=== PATIENT | male | born 1990 | race Two or more races ===

== ENCOUNTER 2016-11-26 14:10 | Emergency (ER) | payer MEDICAID ==
[~2016-11-26] VITALS: Ht 157.5 cm; Wt 54.8 kg
[2016-11-26 14:18] VITALS: Ht 157.5 cm; Wt 54.8 kg
[2016-11-26] MEDS ORDERED: LORAZEPAM 2 MG INJ IV STA (14:53)
[2016-11-26] MEDS ORDERED: SOD CHLORIDE 0.9% 1,000 ML IV STA (14:53)
[2016-11-26 15:45] LABS: ADD SCAN DIFF NO
[2016-11-26 15:47] LABS: HEMATOCRIT 46.1 % (42.0-52.0); HEMOGLOBIN 15.9 g/dl (14.0-18.0); MEAN CORPUSCULAR HEMOGLOBIN 30.2 pg (29.0-33.0); MEAN CORPUSCULAR HGB CONC 34.5 g/dl (32.0-37.0); MEAN CORPUSCULAR VOLUME 87.6 fl (82.0-101.0); MEAN PLATELET VOLUME 10.1 fl (7.4-10.4); PLATELET COUNT 311 10^3/UL (140-415); RED BLOOD COUNT 5.26 10^6/ul (4.70-6.10); RED CELL DISTRIBUTION WIDTH 12.1 % (11.5-14.5); WHITE BLOOD COUNT 5.7 10^3/ul (4.8-10.8)
[2016-11-26 16:11] LABS: ALBUMIN 3.5 g/dl (3.3-4.9); POTASSIUM 3.7 mmol/L (3.5-5.1)
[2016-11-26 16:13] LABS: CREATININE 0.8 mg/dl (0.61-1.24)
[2016-11-26 16:14] LABS: ALBUMIN/GLOBULIN RATIO 0.97; BILIRUBIN,INDIRECT 0.4 mg/dl (0-1.1); BILIRUBIN,TOTAL 0.4 mg/dl (0.2-1.3); TOTAL PROTEIN 7.1 g/dl (6.1-8.1)
[2016-11-26 16:15] LABS: CALCIUM 7.8 mg/dl (8.4-10.2)
[2016-11-26 16:29] LABS: LYMPHOCYTES # 1.9 10^3/ul (0.8-2.9); MONOCYTE # 0.6 10^3/ul (0.3-0.9); NEUTROPHIL # 2.5 10^3/ul (1.6-7.5)
[2016-11-26] MEDS ORDERED: ACETAMINOPHEN 500 MG TAB PO STA (18:48)
--- NOTE | 2016-11-26 19:53 | RADRPT ---
PROCEDURE: XR Chest. CLINICAL INDICATION: Abdominal pain. TECHNIQUE: Single frontal view of the chest. COMPARISON: None. FINDINGS: The cardiomediastinal silhouette is within normal limits. The lungs are clear. No signs of pleural f luid or pneumothorax are seen. The osseous structures and soft tissues are unremarkable. IMPRESSION: No evidence for active cardiopulmonary disease. RPTAT: [facility] Physician Yanet Date Time Electronically viewed and signed by Physician Yanet on 11/26/2016 19:53 RS/
[2016-11-26] MEDS ORDERED: SOD CHLORIDE 0.9% 100 ML ONE (20:13)
[2016-11-26] MEDS ORDERED: IOHEXOL 300MG/ML 150 ML BTL ONE (20:13)
--- NOTE | 2016-11-26 20:45 | RADRPT ---
PROCEDURE: CT Abdomen and Pelvis with contrast. CLINICAL INDICATION: Abdominal pain. TECHNIQUE: CT scan of the abdomen and pelvis with contrast was performed on a multi-detector high- resolution CT scanner. The patient was scanned following the uncomplicated intravenous administrati on of 100 cc of Omnipaque 300. Coronal and sagittal reformatted images were obtained from the axial source images. Images were reviewed on a high-resolution PACS workstation. The total exam CTDI equa ls 4.83 mGy and the total exam DLP equals 275.31 mGy-cm. One or more of the following dose reduction techniques were used: Automated exposure control. Adjustment of the mA and/or kV according to patient size. Use of iterative reconstruction technique. COMPARISON: None. FINDINGS: CT abdomen: The lung bases are clear. The heart size is normal, without pericardial thickening or effusion. Th e liver is normal in size and density without focal mass or intrahepatic biliary dilatation. The sp peter is normal in size and homogeneous in density. The stomach is partially collapsed, but is gross ly unremarkable. The pancreas as visualized is normal. The gallbladder and biliary tree are unrema rkable and there is no evidence for biliary dilatation. The adrenal glands are symmetric and normal . The kidneys are symmetrically unremarkable as well. No renal calculus or obstructive uropathy or mass lesion is seen. The aorta is of normal caliber. There is no retroperitoneal lymphadenopathy. The virginie hepatis reg ion is clear. The bowel and mesentery, as visualized, are equally unremarkable. CT pelvis: The small bowel loops situated within the pelvis are unremarkable. There is normal appendix. The pel thom organs are normal. The pelvic sidewalls and inguinal regions are clear. The sigmoid colon and rectum are unremarkable. No mass, lymphadenopathy, or free fluid is seen. No acute inflammation is seen. The bladder is normal. The surrounding osseous structures are unremarkable. No osteolytic o r osteoblastic lesion is detected. IMPRESSION: 1. No mass, lymphadenopathy, or focal acute inflammatory process is identified. 2. Normal appendix. RPTAT: HHO .Karina Palmer MD, Date Time Electronically viewed and signed by .Karina Palmer MD, on 11/26/2016 20:45 .O/
--- NOTE | 2016-11-26 20:46 | ERA ---
ER Documentation Chief Complaint Date/Time DATE: 11/26/16 TIME: 20:41 Chief Complaint Vomiting diarrhea. HPI This is a 26-year-old male who says that he uses meth regularly and his last meth use was 7 days ago. He says he is here because he feels generalized weakness with nausea vomiting and diarrhea that is nonbilious and nonbloody. He denies any cough shortness of breath no headache no neck pain no fever currently says he has no abdominal pain. Patient denies any alcohol use the patient is a very poor historian will give limited answers ROS All systems reviewed and are negative except as per history of present illness. Medications Home Meds No Active Prescriptions or Reported Meds Allergies Allergies: Coded Allergies: No Known Allergy (Unverified , 11/26/16) PMhx/Soc Medical and Surgical Hx: pt denies Medical Hx, pt denies Surgical Hx History of Surgery: No Anesthesia Reaction: No Hx Neurological Disorder: No Hx Respiratory Disorders: No Hx Cardiac Disorders: No Hx Psychiatric Problems: No Hx Miscellaneous Medical Probl: Yes (DRUG AND ALCOHOL ABUSE) Hx Alcohol Use: Yes (DAILY) Hx Substance Use: Yes (METH X6 YEARS) Hx Tobacco Use: Yes Smoking Status: Current every day smoker FmHx Family History: No coronary disease Physical Exam Vitals Vital Signs Date Time Temp Pulse Resp B/P Pulse Ox O2 Delivery O2 Flow Rate FiO2 11/26/16 20:44 91 16 119/75 98 Room Air 11/26/16 19:14 97 16 129/82 98 Room Air 11/26/16 18:41 103.1 104 16 118/73 99 Room Air 11/26/16 14:18 98.0 92 18 113/73 98 Physical Exam Const: Well-developed, well-nourished Head: Atraumatic, normocephalic Eyes: Normal Conjunctiva, PERRLA, EOMI, normal sclera, no nystagmus ENT: Normal External Ears, Nose and Mouth, moist mucus membranes. Neck: Full range of motion. No meningismus, no lymphadenopathy. Resp: Clear to auscultation bilaterally, no wheezing, rhonchi, rales Cardio: Regular rate and rhythm, no murmurs, S1 S2 present Abd: Soft, non tender x 4, non distended. Normal bowel sounds, no guarding or rebound, no pulsitile abdominal masses or bruits Skin: No petechiae or rashes, no ecchymosis , no maculopapular rash Back: No midline or flank tenderness Ext: No cyanosis, or edema, FROM x 4, normal inspection, neurovascularly intact x 4 Neur: Awake and alert, STR 5/5 x 4, sensation intact x 4, no focal findings, cerebellum intact Psych: Normal Mood and Affect Result Diagram: 11/26/16 1445 11/26/16 1445 Results 24 hrs Laboratory Tests Test 11/26/16 14:45 White Blood Count 5.710^3/ul Red Blood Count 5.2610^6/ul Hemoglobin 15.9g/dl Hematocrit 46.1% Mean Corpuscular Volume 87.6fl Mean Corpuscular Hemoglobin 30.2pg Mean Corpuscular Hemoglobin Concent 34.5g/dl Red Cell Distribution Width 12.1% Platelet Count 11060^3/UL Mean Platelet Volume 10.1fl Neutrophils % 44.0% Band Neutrophils % 7.0% Lymphocytes % 33.0% Reactive Lymphocytes % 5.0% Monocytes % 11.0% Neutrophils # 2.510^3/ul Lymphocytes # 1.910^3/ul Monocytes # 0.610^3/ul Sodium Level 134mmol/L Potassium Level 3.7mmol/L Chloride Level 94mmol/L Carbon Dioxide Level 26mmol/L Anion Gap 18 Blood Urea Nitrogen 13mg/dl Creatinine 0.80mg/dl Glucose Level 122mg/dl Calcium Level 7.8mg/dl Total Bilirubin 0.4mg/dl Direct Bilirubin 0.00mg/dl Indirect Bilirubin 0.4mg/dl Aspartate Amino Transf (AST/SGOT) 120IU/L Alanine Aminotransferase (ALT/SGPT) 109IU/L Alkaline Phosphatase 213IU/L Total Protein 7.1g/dl Albumin 3.5g/dl Globulin 3.60g/dl Albumin/Globulin Ratio 0.97 Current Medications Medications (Trade) Dose Ordered Sig/Tammy Route PRN Reason Start Time Stop Time Status Last Admin Dose Admin Sodium Chloride (NS) 1,000 ml @ 1,000 mls/hr Q1H STAT IV 11/26/16 14:53 11/26/16 15:52 DC 11/26/16 15:06 Lorazepam (Ativan) 2 mg ONCE STAT IV 11/26/16 14:53 11/26/16 14:57 DC 11/26/16 15:06 Acetaminophen (Tylenol Tab) 1,000 mg ONCE STAT PO 11/26/16 18:48 11/26/16 18:49 DC 11/26/16 19:00 IV Flush 10 ml 10 ml STK-MED ONCE .ROUTE 11/26/16 20:13 11/26/16 20:14 DC 11/26/16 20:25 Sodium Chloride (NS) 100 ml @ ud STK-MED ONCE .ROUTE 11/26/16 20:13 11/26/16 20:14 DC 11/26/16 20:25 Iohexol (Omnipaque 300mg/ ml) 150 ml STK-MED ONCE .ROUTE 11/26/16 20:13 11/26/16 20:14 DC 11/26/16 20:25 Procedures/MDM PROCEDURE: XR Chest. CLINICAL INDICATION: Abdominal pain. TECHNIQUE: Single frontal view of the chest. COMPARISON: None. FINDINGS: The cardiomediastinal silhouette is within normal limits. The lungs are clear. No signs of pleural fluid or pneumothorax are seen. The osseous structures and soft tissues are unremarkable. IMPRESSION: No evidence for active cardiopulmonary disease. RPTAT: [facility] Physician Yanet Date Time Electronically viewed and signed by Physician Yanet on 11/26/2016 19:53 RS/ CC: KATIE OWENS DO Patient's labs were unremarkable as was his chest x-ray. The patient then spiked a fever of 103.1. Because of patient having vomiting diarrhea and is a poor historian I decided to get a CT abdomen. PROCEDURE: CT Abdomen and Pelvis with contrast. CLINICAL INDICATION: Abdominal pain. TECHNIQUE: CT scan of the abdomen and pelvis with contrast was performed on a multi-detector high-resolution CT scanner. The patient was scanned following the uncomplicated intravenous administration of 100 cc of Omnipaque 300. Coronal and sagittal reformatted images were obtained from the axial source images. Images were reviewed on a high-resolution PACS workstation. The total exam CTDI equals 4.83 mGy and the total exam DLP equals 275.31 mGy-cm. One or more of the following dose reduction techniques were used: Automated exposure control. Adjustment of the mA and/or kV according to patient size. Use of iterative reconstruction technique. COMPARISON: None. FINDINGS: CT abdomen: The lung bases are clear. The heart size is normal, without pericardial thickening or effusion. The liver is normal in size and density without focal mass or intrahepatic biliary dilatation. The spleen is normal in size and homogeneous in density. The stomach is partially collapsed, but is grossly unremarkable. The pancreas as visualized is normal. The gallbladder and biliary tree are unremarkable and there is no evidence for biliary dilatation. The adrenal glands are symmetric and normal. The kidneys are symmetrically unremarkable as well. No renal calculus or obstructive uropathy or mass lesion is seen. The aorta is of normal caliber. There is no retroperitoneal lymphadenopathy. The virginie hepatis region is clear. The bowel and mesentery, as visualized, are equally unremarkable. CT pelvis: The small bowel loops situated within the pelvis are unremarkable. There is normal appendix. The pelvic organs are normal. The pelvic sidewalls and inguinal regions are clear. The sigmoid colon and rectum are unremarkable. No mass, lymphadenopathy, or free fluid is seen. No acute inflammation is seen. The bladder is normal. The surrounding osseous structures are unremarkable. No osteolytic or osteoblastic lesion is detected. IMPRESSION: 1. No mass, lymphadenopathy, or focal acute inflammatory process is identified. 2. Normal appendix. RPTAT: HHO .Karina Palmer MD, Date Time Electronically viewed and signed by .Karina Palmer MD, MD on 11/26/2016 20:45 .O/ CC: KATIE OWENS DO Reevaluation the patient is very sleepy. The patient says that he has not been sleeping well as of late. Patient is saying he has some mild neck pain and headache but there is no nuchal rigidity. We will get CT scan of brain, likely LP Transfer care to Dr. Rehman. He and I saw the patient together at shift change Departure Diagnosis: Primary Impression: Vomiting and diarrhea Condition: Stable KATIE OWENS DO Nov 26, 2016 20:46
[2016-11-26 21:09] VITALS: TEMP 99.6
[2016-11-26] MEDS ORDERED: SODIUM CHLORIDE 0.9% 1L BAG IV* STA (21:57)
[2016-11-26 22:00] VITALS: RESP 16
[2016-11-26 22:10] LABS: URINE BILIRUBIN (Dip) NEGATIVE (NEGATIVE); URINE BLOOD (Dip) NEGATIVE (NEGATIVE); URINE COLOR YELLOW (YELLOW); URINE GLUCOSE (Dip) NEGATIVE (NEGATIVE); URINE KETONES (Dip) 40 (NEGATIVE); URINE LEUKOCYTE ESTERASE (Dip) NEGATIVE (NEGATIVE); URINE NITRITE (Dip) NEGATIVE (NEGATIVE); URINE UROBILINOGEN (Dip) 1.0 E.U./dL (0.1-1.0)
[2016-11-26 22:11] LABS: ADD UMIC NO; URINE TOTAL PROTEIN (Dip) NEGATIVE (NEGATIVE)
[2016-11-26 23:00] VITALS: BP 118/84; PULSE 93
--- NOTE | 2016-11-26 23:00 | RADRPT ---
PROCEDURE: CT Brain without contrast. CLINICAL INDICATION: Headache TECHNIQUE: A multiplanar CT of the brain was performed on a CT scanner utilizing axial imaging fro m the skull base through the vertex without IV contrast. The CTDIvol is 44.81 mGy and the DLP is 72 0.23 mGycm. One or more of the following dose reduction techniques were utilized: Automated exposu re control, adjustment of the mA and/or kV according to patient size, use of iterative reconstructio n technique. COMPARISON: None FINDINGS: No evidence of intracranial hemorrhage or abnormal extra-axial fluid collection. The brain parenchyma is normal attenuation morphology with preservation of flaherty white differentiatio n and age appropriate size of the ventricles and subarachnoid spaces. The basal cisterns, posterior fossa contents, brainstem, craniocervical junction, orbits, pituitary axis, paranasal sinuses, mastoid air cells, and calvarium are unremarkable. IMPRESSION: 1. No intracranial hemorrhage or acute intracranial abnormality. If clinical symptoms persist, MRI may be considered for further evaluation. RPTAT:AAJJ Physician Damion Date Time Electronically viewed and signed by Physician Damion on 11/26/2016 22:59 SIGRID/
--- NOTE | 2016-11-26 23:17 | QN ---
Documentation Comment I have evaluated this patient. He is alert oriented to person place and time, no focal neurological deficits. He is afebrile. CT the head is normal, he has no nuchal rigidity, negative Kernig sign, negative Babinski sign. He will be discharged home at this time JAM ABREU DO Nov 26, 2016 23:17
[2016-11-27] MEDS ORDERED: ONDA4TAB14 PO (06:52)
== END 2016-11-26 23:28 | disposition home or self-care (01) ==
LOC: E/R 14:10
DX: R11.10 Vomiting, unspecified (principal); R19.7 Diarrhea, unspecified; F17.210 Nicotine dependence, cigarettes, uncomplicated; R40.2142 Coma scale, eyes open, spontaneous, at arrival to emergency department; R40.2252 Coma scale, best verbal response, oriented, at arrival to emergency department; R40.2362 Coma scale, best motor response, obeys commands, at arrival to emergency department; R51 Headache
CPT/HCPCS: 36415; 70450; 71010; 74177; 80053; 81003; 83605; 85025; 96374; J2060; J7030; Q9967; Z7502; Z7610

== ENCOUNTER 2016-11-27 06:19 | Emergency (ER) | payer MEDICAID ==
[~2016-11-27] VITALS: Ht 170.2 cm; Wt 57.0 kg
[2016-11-27 06:25] VITALS: Ht 170.2 cm; Wt 57.0 kg
[2016-11-27] MEDS ORDERED: ONDANSETRON 4 MG INJ IV STA (06:26)
[2016-11-27] MEDS ORDERED: FAMOTIDINE 20 MG INJ IV STA (06:26)
[2016-11-27] MEDS ORDERED: SOD CHLORIDE 0.9% 1,000 ML IV STA ×2 (06:26→07:39)
--- NOTE | 2016-11-27 06:50 | ERD ---
ER Documentation Chief Complaint Date/Time DATE: 11/27/16 TIME: 06:46 Chief Complaint N/V/D x 3 days HPI This is a 26-year-old male that returns to the emergency department after he been discharged roughly 12 hours prior to arrival complaining of persistent nonbloody nonbilious emesis. The patient indicates that for the past 3 days he has been experiencing multiple episodes of nonbloody nonbilious emesis and loose watery stools. The patient on this visit indicates that he is not experiencing any abdominal pain or cramping. Yesterday during his visit at [facility] the patient had a chest x-ray, CT scan of his brain and CT scan of his abdomen and pelvis which were reviewed by myself and found to be normal. The patient has a history of crystal meth use and indicates his last use was 8 days prior to arrival and denies any ethanol intake. The patient stated he returned to the emergency department today as he was instructed to return if his vomiting did not improve. He did not take any antiemetics at home. He has had no fevers no shaking or chills. He denies any recent travel. ROS All systems reviewed and are negative except as per history of present illness. Medications Home Meds Active Scripts Ondansetron (Ondansetron Odt) 4 Mg Tab.rapdis, 4 MG PO Q6H Y for NAUSEA AND/OR VOMITING, #20 TAB Prov:YARITZA VALENTIN 11/27/16 Allergies Allergies: Coded Allergies: No Known Allergy (Unverified , 11/26/16) PMhx/Soc History of Surgery: No Anesthesia Reaction: No Hx Neurological Disorder: No Hx Respiratory Disorders: No Hx Cardiac Disorders: No Hx Psychiatric Problems: No Hx Miscellaneous Medical Probl: Yes (DRUG AND ALCOHOL ABUSE) Hx Alcohol Use: Yes (DAILY) Hx Substance Use: Yes (METH X6 YEARS) Hx Tobacco Use: Yes Physical Exam Vitals Vital Signs Date Time Temp Pulse Resp B/P Pulse Ox O2 Delivery O2 Flow Rate FiO2 11/27/16 07:00 98.3 94 20 113/85 100 Room Air 11/27/16 06:25 98.6 78 18 146/89 99 Physical Exam Constitutional:Well-developed. Well-nourished. HEENT:Normocephalic. Atraumatic.Pupils were equal round reactive to light. Dry mucous membranes.No tonsillar exudates. Neck: No nuchal rigidity. No lymphadenopathy. No posterior cervical spine tenderness or step-offs. Respiratory: Not using accessory muscles of respiration.Lungs were clear to auscultation bilaterally. No rhonchi. No rales. No wheezing. Cardiovascular: Regular rate regular rhythm.No murmurs. No rubs were appreciated.S1, S2 normal. Distal pulses are palpable 2+ bilaterally. GI: Abdomen was soft. Nontender. Non Distended. No pulsatile abdominal masses or bruits. No rebound. No guarding. Bowel sounds were present and normal. Muscle skeletal: Full range of motion of both the upper and lower extremities bilaterally.Normal muscle tone.No assymetrical calf tenderness or swelling. Skin: No petechia, no purpura. No lesions on the palms or the soles of the feet. No maculopapular rash. NEURO: Patient was alert, awake, orientated x3.No facial droop. Gait observed and normal with no ataxia.Speech had regular rate and rhythm. No focal neurological deficits. Result Diagram: 11/27/16 0650 11/27/16 0650 Results 24 hrs Laboratory Tests Test 11/27/16 06:50 11/27/16 08:35 White Blood Count 6.710^3/ul Red Blood Count 5.1310^6/ul Hemoglobin 15.3g/dl Hematocrit 45.8% Mean Corpuscular Volume 89.3fl Mean Corpuscular Hemoglobin 29.8pg Mean Corpuscular Hemoglobin Concent 33.4g/dl Red Cell Distribution Width 12.5% Platelet Count 35156^3/UL Mean Platelet Volume 9.2fl Neutrophils % 50.0% Band Neutrophils % 7.0% Lymphocytes % 28.0% Reactive Lymphocytes % 9.0% Monocytes % 6.0% Neutrophils # 3.410^3/ul Lymphocytes # 1.910^3/ul Monocytes # 0.410^3/ul Prothrombin Time 13.9Sec Prothrombin Time Ratio 1.1 INR International Normalized Ratio 1.07 Activated Partial Thromboplast Time 28.1Sec Sodium Level 139mmol/L Potassium Level 3.9mmol/L Chloride Level 102mmol/L Carbon Dioxide Level 25mmol/L Anion Gap 16 Blood Urea Nitrogen 10mg/dl Creatinine 0.67mg/dl Glucose Level 127mg/dl Lactic Acid Level 1.4mmol/L Calcium Level 7.4mg/dl Total Bilirubin 0.3mg/dl Direct Bilirubin 0.00mg/dl Indirect Bilirubin 0.3mg/dl Aspartate Amino Transf (AST/SGOT) 87IU/L Alanine Aminotransferase (ALT/SGPT) 93IU/L Alkaline Phosphatase 183IU/L Total Protein 6.3g/dl Albumin 3.1g/dl Globulin 3.20g/dl Albumin/Globulin Ratio 0.96 Amylase Level 46U/L Lipase 49U/L Ethyl Alcohol Level < 10.0mg/dl Urine Color LT. YELLOW Urine Clarity CLEAR Urine pH 6.0 Urine Specific [place] <=1.005 Urine Ketones TRACE Urine Nitrite NEGATIVE Urine Bilirubin NEGATIVE Urine Urobilinogen 0.2 E.U./dL Urine Leukocyte Esterase NEGATIVE Urine Hemoglobin NEGATIVE Urine Glucose NEGATIVE% Urine Total Protein NEGATIVE Urine Opiates Screen Negative Urine Barbiturates Negative Urine Amphetamines Screen Negative Urine Benzodiazepines Screen Negative Urine Cocaine Screen Negative Urine Cannabinoids Negative Current Medications Medications (Trade) Dose Ordered Sig/Tammy Route PRN Reason Start Time Stop Time Status Last Admin Dose Admin Sodium Chloride (NS) 1,000 ml @ 1,000 mls/hr Q1H STAT IV 11/27/16 06:26 11/27/16 07:25 DC 11/27/16 06:59 Ondansetron HCl (Zofran Inj) 4 mg ONCE STAT IV 11/27/16 06:26 11/27/16 06:28 DC 11/27/16 06:59 Famotidine 20 mg 20 mg ONCE STAT IV 11/27/16 06:26 11/27/16 06:28 DC 11/27/16 06:59 Sodium Chloride (NS) 1,000 ml @ 1,000 mls/hr Q1H STAT IV 11/27/16 07:39 11/27/16 08:38 DC 11/27/16 07:54 Procedures/MDM This is a 26-year-old male who presented to the emergency department with vomiting and diarrhea. The patient appeared to have clinical dehydration and IV access was established by nursing staff. The patient received intravenous antiemetics which included Zofran and Reglan and IV fluids. The patient also received IV Pepcid. I repeated ancillary laboratory work and there were no electrolyte abnormalities. The patient's lactic acid was normal. Urine drug screen was normal and serum ethanol level was undetected. The patient now was able to tolerate oral intake in the emergency department with no subsequent emesis. I do not feel is necessary to repeat diagnostic imaging as the patient had no peritoneal signs on abdominal examination and no physical exam findings to suggest esophageal rupture. Observation Note: Time: 4 hours Family Hx: No Hypertension Evaluation: Multiple exams showed improving symptoms and no evidence of emesis while in the emergency department The patient was discharged home in fair condition. They were instructed to return to the emergency department at any time if there was any worsening of their condition. The patient stated they would follow up with their PCP in the next 24-48 hours to initiate a suitable medication regimen under the care of their PCP as well as to allow their PCP to monitor any drug reactions. The patient was discharged home with prescriptions after they gave informed consent to the new medication. They were also fully informed by myself on the adverse effects and adverse drug interactions in order to provide adequate safeguards to prevent possible adverse reactions to medications. Departure Diagnosis: Primary Impression: Nausea and vomiting Vomiting type: unspecified Vomiting Intractability: unspecified Qualified Code: R11.2 - Nausea and vomiting, intractability of vomiting not specified, unspecified vomiting type Condition: Fair YARITZA VALENTIN Nov 27, 2016 06:50
[2016-11-27] MEDS ORDERED: ONDA4TAB14 PO (06:52)
[2016-11-27 07:05] LABS: ADD SCAN DIFF NO
[2016-11-27 07:15] LABS: HEMATOCRIT 45.8 % (42.0-52.0); HEMOGLOBIN 15.3 g/dl (14.0-18.0); MEAN CORPUSCULAR HEMOGLOBIN 29.8 pg (29.0-33.0); MEAN CORPUSCULAR HGB CONC 33.4 g/dl (32.0-37.0); MEAN CORPUSCULAR VOLUME 89.3 fl (82.0-101.0); MEAN PLATELET VOLUME 9.2 fl (7.4-10.4); PLATELET COUNT 322 10^3/UL (140-415); RED BLOOD COUNT 5.13 10^6/ul (4.70-6.10); RED CELL DISTRIBUTION WIDTH 12.5 % (11.5-14.5); WHITE BLOOD COUNT 6.7 10^3/ul (4.8-10.8)
[2016-11-27 07:23] LABS: ALBUMIN 3.1 g/dl (3.3-4.9); CHLORIDE 102 mmol/L (97-110); INR 1.07; POTASSIUM 3.9 mmol/L (3.5-5.1); PROTIME 13.9 Sec (12.2-14.2); PT RATIO 1.1; SODIUM 139 mmol/L (135-144)
[2016-11-27 07:24] LABS: PARTIAL THROMBOPLASTIN TIME 28.1 Sec (25.0-35.0)
[2016-11-27 07:25] LABS: AMYLASE 46 U/L (11-123); CREATININE 0.67 mg/dl (0.61-1.24)
[2016-11-27 07:26] LABS: ALANINE AMINOTRANSFERASE 93 IU/L (13-69); ALBUMIN/GLOBULIN RATIO 0.96; ALKALINE PHOSPHATASE 183 IU/L (42-121); ANION GAP 16 (8-16); ASPARTATE AMINO TRANSFERASE 87 IU/L (15-46); BILIRUBIN,INDIRECT 0.3 mg/dl (0-1.1); BILIRUBIN,TOTAL 0.3 mg/dl (0.2-1.3); BLOOD UREA NITROGEN 10 mg/dl (7-20); CALCIUM 7.4 mg/dl (8.4-10.2); CARBON DIOXIDE 25 mmol/L (21-31); GLUCOSE 127 mg/dl (70-220); TOTAL PROTEIN 6.3 g/dl (6.1-8.1)
[2016-11-27 07:28] LABS: ETHANOL < 10.0 mg/dl
[2016-11-27 08:58] LABS: LYMPHOCYTES # 1.9 10^3/ul (0.8-2.9); MONOCYTE # 0.4 10^3/ul (0.3-0.9); NEUTROPHIL # 3.4 10^3/ul (1.6-7.5)
[2016-11-27 09:24] LABS: ADD UMIC NO; URINE BILIRUBIN (Dip) NEGATIVE (NEGATIVE); URINE BLOOD (Dip) NEGATIVE (NEGATIVE); URINE COLOR LT. YELLOW (YELLOW); URINE GLUCOSE (Dip) NEGATIVE (NEGATIVE); URINE KETONES (Dip) TRACE (NEGATIVE); URINE LEUKOCYTE ESTERASE (Dip) NEGATIVE (NEGATIVE); URINE NITRITE (Dip) NEGATIVE (NEGATIVE); URINE TOTAL PROTEIN (Dip) NEGATIVE (NEGATIVE); URINE UROBILINOGEN (Dip) 0.2 E.U./dL (0.1-1.0)
[2016-11-27 09:59] LABS: BARBITURATES Negative (NEGATIVE); BENZODIAZEPINES Negative (NEGATIVE); CANNABINOIDS Negative (NEGATIVE); COCAINE Negative (NEGATIVE); OPIATES Negative (NEGATIVE)
[2016-11-27 11:00] VITALS: BP 111/62; PULSE 86; RESP 20; TEMP 98.3
== END 2016-11-27 11:33 | disposition home or self-care (01) ==
LOC: E/R 06:19
DX: R11.2 Nausea with vomiting, unspecified (principal); R40.2252 Coma scale, best verbal response, oriented, at arrival to emergency department; R10.9 Unspecified abdominal pain; R40.2142 Coma scale, eyes open, spontaneous, at arrival to emergency department; R40.2362 Coma scale, best motor response, obeys commands, at arrival to emergency department; Z87.891 Personal history of nicotine dependence
CPT/HCPCS: 80053; 80306; 80307; 81003; 82150; 83605; 83690; 85025; 85610; 85730; J2405; J7030; Z7610; 96374; 96375

== ENCOUNTER 2017-02-03 23:15 | Emergency (ER) | payer SELFPAY ==
[~2017-02-03] VITALS: Ht 170.2 cm; Wt 59.0 kg
[~2017-02-03 23:15] MED LIST: ONDA4TAB14 PO
[2017-02-03 23:18] VITALS: Ht 170.2 cm; Wt 59.0 kg
[2017-02-03] MEDS ORDERED: SOD CHLORIDE 0.9% 1,000 ML IV STA (23:44)
[2017-02-03] MEDS ORDERED: FAMOTIDINE 20 MG TAB PO STA (23:44)
[2017-02-03] MEDS ORDERED: ONDANSETRON 4 MG INJ IV STA (23:44)
[2017-02-04 00:52] LABS: ADD SCAN DIFF NO
[2017-02-04 01:00] LABS: BASOPHILS % 0.1 % (0.0-2.0); EOSINOPHILS # 0.1 10^3/ul (0.0-0.5); EOSINOPHILS % 0.4 % (0.0-7.0); HEMATOCRIT 46.2 % (42.0-52.0); HEMOGLOBIN 15.6 g/dl (14.0-18.0); LYMPHOCYTES # 1.7 10^3/ul (0.8-2.9); LYMPHOCYTES % 13.1 % (15.0-51.0); MEAN CORPUSCULAR HEMOGLOBIN 29.3 pg (29.0-33.0); MEAN CORPUSCULAR HGB CONC 33.8 g/dl (32.0-37.0); MEAN CORPUSCULAR VOLUME 86.8 fl (82.0-101.0); MEAN PLATELET VOLUME 9.4 fl (7.4-10.4); MONOCYTE # 0.6 10^3/ul (0.3-0.9); MONOCYTES % 4.8 % (0.0-11.0); NEUTROPHIL # 10.7 10^3/ul (1.6-7.5); NEUTROPHILS % 81.3 % (39.0-77.0); PLATELET COUNT 273 10^3/UL (140-415); RED BLOOD COUNT 5.32 10^6/ul (4.70-6.10); RED CELL DISTRIBUTION WIDTH 12.9 % (11.5-14.5); WHITE BLOOD COUNT 13.1 10^3/ul (4.8-10.8)
[2017-02-04 01:08] LABS: ADD UMIC NO; UR ASCORBIC ACID NEGATIVE (NEGATIVE); UR BILIRUBIN (Dip) NEGATIVE (NEGATIVE); UR BLOOD (Dip) NEGATIVE (NEGATIVE); UR CLARITY CLEAR (CLEAR); UR COLOR YELLOW (YELLOW); UR GLUCOSE (Dip) NEGATIVE (NEGATIVE); UR KETONES (Dip) 1+ mg/dL (NEGATIVE); UR LEUKOCYTE ESTERASE (Dip) NEGATIVE Leu/ul (NEGATIVE); UR NITRITE (Dip) NEGATIVE (NEGATIVE); UR SPECIFIC GRAVITY (Dip) 1.017 (1.003-1.030); UR TOTAL PROTEIN (Dip) NEGATIVE (NEGATIVE); UR UROBILINOGEN (Dip) NEGATIVE (NEGATIVE)
[2017-02-04 01:28] LABS: ALBUMIN 4.4 g/dl (3.3-4.9); ALBUMIN/GLOBULIN RATIO 1.33; BILIRUBIN,INDIRECT 0.4 mg/dl (0-1.1); BILIRUBIN,TOTAL 0.4 mg/dl (0.2-1.3); CALCIUM 8.9 mg/dl (8.4-10.2); CREATININE 0.58 mg/dl (0.61-1.24); POTASSIUM 3.5 mmol/L (3.5-5.1); TOTAL PROTEIN 7.7 g/dl (6.1-8.1)
[2017-02-04 02:00] LABS: BARBITURATES NEGATIVE (NEGATIVE); BENZODIAZEPINES NEGATIVE (NEGATIVE); CANNABINOIDS NEGATIVE (NEGATIVE); COCAINE NEGATIVE (NEGATIVE); OPIATES NEGATIVE (NEGATIVE)
[2017-02-04] MEDS ORDERED: ONDA4TAB14 PO (02:05)
[2017-02-04] MEDS ORDERED: FAMO-18 PO (02:05)
--- NOTE | 2017-02-04 02:10 | ERD ---
ER Documentation Chief Complaint Date/Time DATE: 02/04/17 TIME: 02:07 Chief Complaint abd pain w/ vomiting x 2 days HPI 26-year-old male patient with no significant past medical history presents the ED complaining of abdominal pain that started 2 days ago. Reports that he had a bowel movement earlier this morning. States that he had 2 episodes of nonbilious nonbloody vomiting. Reports that he has methamphetamine use. States that he smokes 5-6 cigarettes per day. Denies any diarrhea, constipation , chest pain, shortness of breath, wheezing, fever, chills, weakness, numbness or tingling. Denies any dysuria, urgency, frequency, scrotal pain. ROS All systems reviewed and are negative except as per history of present illness. Medications Home Meds Active Scripts Ondansetron (Ondansetron Odt) 4 Mg Tab.rapdis, 4 MG PO Q6H Y for NAUSEA AND/OR VOMITING, #10 TAB Prov:JOSAFAT LUEVANO PA-C 02/04/17 Famotidine* (Pepcid*) 20 Mg Tablet, 20 MG PO BID, #20 TAB Prov:JOSAFAT LUEVANO PA-C 02/04/17 Ondansetron (Ondansetron Odt) 4 Mg Tab.rapdis, 4 MG PO Q6H Y for NAUSEA AND/OR VOMITING, #20 TAB Prov:YARITZA VALENTIN 11/27/16 Allergies Allergies: Coded Allergies: No Known Allergy (Unverified , 11/26/16) PMhx/Soc Medical and Surgical Hx: pt denies Medical Hx, pt denies Surgical Hx History of Surgery: No Anesthesia Reaction: No Hx Neurological Disorder: No Hx Respiratory Disorders: No Hx Cardiac Disorders: No Hx Psychiatric Problems: No Hx Miscellaneous Medical Probl: No Hx Alcohol Use: Yes Hx Substance Use: No Hx Tobacco Use: Yes Smoking Status: Current every day smoker Physical Exam Vitals Vital Signs Date Time Temp Pulse Resp B/P Pulse Ox O2 Delivery O2 Flow Rate FiO2 02/03/17 23:18 98.3 91 20 136/99 99 Physical Exam Const: [id number], well-nourished. In no acute distress. Head: Atraumatic, normocephalic Eyes: Normal Conjunctiva without injection. No purulent discharge. ENT: Normal external ear, nose. Moist oropharynx without tonsillar exudates. Non -erythematous pharynx. Uvula midline. No drooling. No trismus. Neck: No cervical midline tenderness. Full range of motion. No meningismus. No cervical lymphadenopathy. No JVD. Resp: Clear to auscultation bilaterally. No wheezing, rhonchi, rales, or crackles. No accessory muscle use. No retractions. Cardio: Regular rate and rhythm. No murmurs, rubs or gallops. Abd: Soft, generalized tenderness, non distended. Normal bowel sounds. No palpable masses. No rebound tenderness. No guarding. Negative McBurney's point. Negative psoas sign. Negative obturator sign. Skin: No petechiae or rashes Back: No midline tenderness. No CVA tenderness. Ext: No cyanosis, or edema. Neur: Awake and alert. Normal gait. Normal coordination. Psych: Normal Mood and Affect Result Diagram: 02/04/17 0023 02/04/17 0023 Results 24 hrs Laboratory Tests Test 02/04/17 00:23 White Blood Count 13.110^3/ul Red Blood Count 5.3210^6/ul Hemoglobin 15.6g/dl Hematocrit 46.2% Mean Corpuscular Volume 86.8fl Mean Corpuscular Hemoglobin 29.3pg Mean Corpuscular Hemoglobin Concent 33.8g/dl Red Cell Distribution Width 12.9% Platelet Count 70410^3/UL Mean Platelet Volume 9.4fl Neutrophils % 81.3% Lymphocytes % 13.1% Monocytes % 4.8% Eosinophils % 0.4% Basophils % 0.1% Nucleated Red Blood Cells % 0.0/100WBC Neutrophils # 10.710^3/ul Lymphocytes # 1.710^3/ul Monocytes # 0.610^3/ul Eosinophils # 0.110^3/ul Basophils # 0.010^3/ul Nucleated Red Blood Cells # 0.010^3/ul Urine Color YELLOW Urine Clarity CLEAR Urine pH 6.0 Urine Specific Tamms 1.017 Urine Ketones 1+mg/dL Urine Nitrite NEGATIVEmg/dL Urine Bilirubin NEGATIVEmg/dL Urine Urobilinogen NEGATIVEmg/dL Urine Leukocyte Esterase NEGATIVELeu/ul Urine Hemoglobin NEGATIVEmg/dL Urine Glucose NEGATIVEmg/dL Urine Total Protein NEGATIVEmg/dl Sodium Level 141mmol/L Potassium Level 3.5mmol/L Chloride Level 105mmol/L Carbon Dioxide Level 24mmol/L Anion Gap 16 Blood Urea Nitrogen 8mg/dl Creatinine 0.58mg/dl Glucose Level 103mg/dl Calcium Level 8.9mg/dl Total Bilirubin 0.4mg/dl Direct Bilirubin 0.00mg/dl Indirect Bilirubin 0.4mg/dl Aspartate Amino Transf (AST/SGOT) 30IU/L Alanine Aminotransferase (ALT/SGPT) 43IU/L Alkaline Phosphatase 134IU/L Total Protein 7.7g/dl Albumin 4.4g/dl Globulin 3.30g/dl Albumin/Globulin Ratio 1.33 Lipase 34U/L Urine Opiates Screen NEGATIVE Urine Barbiturates NEGATIVE Urine Amphetamines Screen POSITIVE Urine Benzodiazepines Screen NEGATIVE Urine Cocaine Screen NEGATIVE Urine Cannabinoids NEGATIVE Current Medications Medications (Trade) Dose Ordered Sig/Tammy Route PRN Reason Start Time Stop Time Status Last Admin Dose Admin Sodium Chloride (NS) 1,000 ml @ 1,000 mls/hr Q1H STAT IV 02/03/17 23:44 02/04/17 00:43 DC 02/04/17 00:26 Ondansetron HCl (Zofran Inj) 4 mg ONCE STAT IV 02/03/17 23:44 02/03/17 23:46 DC 02/04/17 00:33 Famotidine (Pepcid) 20 mg ONCE STAT PO 02/03/17 23:44 02/03/17 23:46 DC 02/04/17 00:33 Procedures/MDM This is a 26-year-old male patient with a past medical history of methamphetamine use presents to the ED complaining of chronic abdominal pain that started 2 days ago. Patient already received a CT of the abdomen and pelvis without contrast and was negative during November 2016. Patient is afebrile and nontoxic-appearing. Patient was further worked up with CBC, CMP, lipase, UA, urine drug screen. Patient's pain and symptoms have improved after treatment with 20 mg IV famotidine, 4 mg IV Zofran, 1 L of normal saline. CBC: Slight leukocytosis of 13.7. No e/o of systemic infection. No e/o anemia. CMP: No e/o severe acidosis, alkalosis, renal failure, diabetic ketoacidosis, liver disease Lipase within normal limits. Urine: No leukocyte esterase, no nitrites, no hematuria. Urine drug screen showed methamphetamine use. CT of abdomen and pelvis showed no acute abdominal abnormalities 11/27/16. No indication for repeat CT of abdomen and pelvis. Low suspicion for gastritis, GERD, peptic ulcer disease, cholecystitis, choledocholithiasis, cholangitis, pancreatitis, appendicitis, bowel obstruction, ileus, volvulus, nephrolithiasis , pyelonephritis, hepatitis, perforated viscus, diverticulitis, abdominal hernia , acute abdomen, mesenteric ischemia or other emergent conditions. Smoking Cessation Therapy: Pt. was lectured for greater than 3 minutes on the health risks of continued smoking and the benefits of cessation. 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 Instructed patient to return to the ED sooner for any worsening symptoms. Patient's questions were answered. Patient understood and agreed with discharge plan. Patient discharged stable. Departure Diagnosis: Primary Impression: Abdominal pain Abdominal location: unspecified location Qualified Code: R10.9 - Abdominal pain, unspecified location Additional Impressions: Methamphetamine use Vomiting Vomiting type: unspecified Vomiting Intractability: unspecified Nausea presence: unspecified Qualified Code: R11.10 - Vomiting, intractability of vomiting not specified, presence of nausea not specified, unspecified vomiting type Condition: Stable Patient Instructions: Abdominal Pain, Understanding Methamphetamine Abuse and Addiction, Vomiting (6Y-Adult) Referrals: [facility] YOU HAVE RECEIVED A MEDICAL SCREENING EXAM AND THE RESULTS INDICATE THAT YOU DO NOT HAVE A CONDITION THAT REQUIRES URGENT TREATMENT IN THE EMERGENCY DEPARTMENT. FURTHER EVALUATION AND TREATMENT OF YOUR CONDITION CAN WAIT UNTIL YOU ARE SEEN IN YOUR DOCTORS OFFICE WITHIN THE NEXT 1-2 DAYS. IT IS YOUR RESPONSIBILITY TO MAKE AN APPOINTMENT FOR FOLOW-UP CARE. IF YOU HAVE A PRIMARY DOCTOR --you should call your primary doctor and schedule an appointment IF YOU DO NOT HAVE A PRIMARY DOCTOR YOU CAN CALL OUR PHYSICIAN REFERRAL HOTLINE AT IF YOU CAN NOT AFFORD TO SEE A PHYSICIAN YOU CAN CHOSE FROM THE FOLLOWING [facility] [address] [facility] [address] [facility]. [facility] [address] [facility] [address] [facility]. [facility] [address] [facility]. [facility] [address] [facility]. [facility] YOU HAVE RECEIVED A MEDICAL SCREENING EXAM AND THE RESULTS INDICATE THAT YOU DO NOT HAVE A CONDITION THAT REQUIRES URGENT TREATMENT IN THE EMERGENCY DEPARTMENT. FURTHER EVALUATION AND TREATMENT OF YOUR CONDITION CAN WAIT UNTIL YOU ARE SEEN IN YOUR DOCTORS OFFICE WITHIN THE NEXT 1-2 DAYS. IT IS YOUR RESPONSIBILITY TO MAKE AN APPOINTMENT FOR FOLOW-UP CARE. IF YOU HAVE A PRIMARY DOCTOR --you should call your primary doctor and schedule and appointment IF YOU DO NOT HAVE A PRIMARY DOCTOR YOU CAN CALL OUR PHYSICIAN REFERRAL HOTLINE AT . IF YOU CAN NOT AFFORD TO SEE A PHYSICIAN YOU CAN CHOSE FROM THE FOLLOWING [facility] INSTITUTIONS: [facility] [address] [place] [address] [facility] [address] [place] [address] [facility] [address] [place] [address] [facility] URGENT CARE/SPECIALTIES Additional Instructions: Llame al doctorhaga judith NORA PARA DENTRO DE 2 TRIPLETT para un referido a un gastroenterlogo.Dgale a la secretaria que nosotros le instruimos hacer esta nora.Avise o llame si zacarias condicin se empeora antes de la nora. Regresa aqui si peor o no mejor. JOSAFAT LUEVANO PA-C Feb 04, 2017 02:10
== END 2017-02-04 02:14 | disposition home or self-care (01) ==
LOC: FTE 23:15
DX: R10.84 Generalized abdominal pain (principal); R11.10 Vomiting, unspecified; F15.10 Other stimulant abuse, uncomplicated; F17.210 Nicotine dependence, cigarettes, uncomplicated
CPT/HCPCS: 36415; 80053; 80307; 81003; 83690; 85025; 96374; 99284; J2405; J7030